=== PATIENT | male | born 1965 | race Caucasian/White ===

== ENCOUNTER 2017-02-17 18:24 | Emergency (ER) | payer MEDICARE, OTHER ==
[~2017-02-17] VITALS: Ht 182.9 cm; Wt 112.3 kg
[2017-02-17] MEDS ORDERED: ZYRT10CA PO (18:40)
[2017-02-17] MEDS ORDERED: ATOR1TAB19 PO (18:40)
[2017-02-17] MEDS ORDERED: TRAM-533 (18:40)
[2017-02-17] MEDS ORDERED: NORCOTAB PO (20:56)
[2017-02-17] MEDS ORDERED: NEUR300C PO (20:56)
[2017-02-17] MEDS ORDERED: GABAPENTIN 300 MG CAP PO ONE (21:00)
[2017-02-17] MEDS ORDERED: NORCO 5/325MG TABLET (BULK FOR ED) PO ONE (21:00)
[2017-02-17 21:04] VITALS: BP 132/68
== END 2017-02-17 21:05 | disposition home or self-care (01) ==
LOC: M ED 18:24
DX: G57.91 Unspecified mononeuropathy of right lower limb (principal); M54.5 Low back pain; Z87.442 Personal history of urinary calculi; Z79.899 Other long term (current) drug therapy; L23.1 Allergic contact dermatitis due to adhesives

== ENCOUNTER 2017-04-25 18:57 | Emergency (ER) | payer MEDICARE, OTHER ==
[~2017-04-25] VITALS: Ht 182.9 cm; Wt 116.8 kg
[~2017-04-25 18:57] MED LIST: ATOR1TAB19 PO; NEUR300C PO; NORCOTAB PO; TRAM-533; ZYRT10CA PO
[2017-04-25] MEDS ORDERED: amoxicillin PO (19:05)
[2017-04-25] MEDS ORDERED: NS 1,000 ML IV ONE (19:30)
[2017-04-25 19:49] LABS: BASO % 0.6 % (0.0-1.0); EOS # 0.1 10^3/uL (0.0-0.50); EOS % 1.5 % (0.0-3.0); IMMATURE GRANULOCYTE % 0.4 % (0-0); LYMPH # 1.4 10^3/uL (1.5-4.5); LYMPH % 19.1 % (24.0-44.0); MEAN CORPUSCULAR HEMOGLOBIN 30.5 pg (27.0-33.0); MEAN CORPUSCULAR HGB CONC 34.5 g/dl (32.0-36.5); MEAN CORPUSCULAR VOLUME 88.5 fl (80.0-96.0); MONO # 0.8 10^3/uL (0.0-0.8); MONO % 10.9 % (0.0-5.0); NEUTROPHILS # 4.8 10^3/uL (1.8-7.7); NEUTROPHILS % 67.5 % (36.0-66.0); PLATELET COUNT, AUTOMATED 228 10^3/uL (150-450); RED CELL DISTRIBUTION WIDTH 12.1 % (11.5-14.5); WHITE BLOOD COUNT 7.2 10^3/uL (4.0-10.0)
--- NOTE | 2017-04-25 19:50 | REPUSA ---
CT of the abdomen and pelvis without contrast Clinical statement: Pain. Technique: Multiple axial CT images were obtained from the base of the lungs to the floor of the pelv is utilizing 5 mm axial slices without administration of contrast. Coronal and sagittal reconstructio ns were also obtained. No comparison is available. Findings: Chest: The visualized lung bases are clear. Abdomen: The kidneys are normal in size bilaterally. There is no evidence of hydronephrosis or nephro lithiasis. The liver, spleen, pancreas, gallbladder and adrenal glands are unremarkable. The aorta de monstrates normal caliber and contour. There is no abdominal lymphadenopathy or ascites. Pelvis: The bowel is unremarkable, with no obstructive or inflammatory changes. The urinary bladder i s within normal limits. There is no pelvic lymphadenopathy or ascites. The other pelvic structures ap pear unremarkable. Bones: There are no suspicious osseous abnormalities seen. Surgical fusion at L4 through S1 is intact . Impression: 1. No evidence of hydronephrosis or nephrolithiasis. 2. No obstructive or inflammatory bowel changes. 3. Lumbar fusion changes are intact.
[2017-04-25 20:12] LABS: ALBUMIN 4.1 GM/DL (3.2-5.2); ALBUMIN/GLOBULIN RATIO 1.17 (1.00-1.93); ALKALINE PHOSPHATASE 71 U/L (45-117); ALT/SGPT 30 U/L (12-78); ANION GAP 8 MEQ/L (8-16); AST/SGOT 23 U/L (7-37); BILIRUBIN,TOTAL 0.5 MG/DL (0.2-1.0); BLOOD UREA NITROGEN 22 MG/DL (7-18); CALCIUM LEVEL 8.7 MG/DL (8.5-10.1); CARBON DIOXIDE LEVEL 27 MEQ/L (21-32); CHLORIDE LEVEL 107 MEQ/L (98-107); CREATININE FOR GFR 1.03 MG/DL (0.70-1.30); GLOMERULAR FILTRATION RATE > 60.0 (>56); GLUCOSE, FASTING 82 MG/DL (70-105); POTASSIUM SERUM 4.2 MEQ/L (3.5-5.1); SODIUM LEVEL 142 MEQ/L (136-145); TOTAL PROTEIN 7.6 GM/DL (6.4-8.2)
[2017-04-25] MEDS ORDERED: KETOROLAC 30 MG/ML VIAL (J1885) IV ONE (20:30)
[2017-04-25] MEDS ORDERED: CYCL10TA PO (20:49)
[2017-04-25] MEDS ORDERED: CYCLOBENZAPRINE 10 MG TAB PO ONE (21:00)
[2017-04-25] MEDS ORDERED: PERCOCET 5MG/325MG TAB PO ONE (21:00)
[2017-04-25] MEDS ORDERED: IBUPROFEN 600 MG TAB PO ONE (21:00)
[2017-04-25 21:21] VITALS: BP 128/84
== END 2017-04-25 21:30 | disposition home or self-care (01) ==
LOC: M ED 18:57
DX: M54.5 Low back pain (principal)
CPT/HCPCS: 36415; 74176; 80053; 81001; 85025; 96374; 99284; J1885

== ENCOUNTER 2017-05-18 16:26 | Emergency (ER) | payer MEDICARE, OTHER | END 2017-05-18 18:06 | disposition home or self-care (01) | LOC: M ED 16:26 | DX: S60.121A Contusion of right index finger with damage to nail, initial encounter (principal); W23.1XXA Caught, crushed, jammed, or pinched between stationary objects, initial encounter; Y92.89 Other specified places as the place of occurrence of the external cause | CPT/HCPCS: 73130 ==

== ENCOUNTER 2019-09-12 10:16 | Emergency (ER) | payer MEDICARE, OTHER ==
[~2019-09-12] VITALS: Ht 182.9 cm; Wt 123.4 kg
[~2019-09-12 10:16] MED LIST changes: +CYCL-707 PO; +HYDR-3715 PO; -NORCOTAB PO; +amoxicillin PO
[2019-09-12] MEDS ORDERED: b/p med (10:26)
[2019-09-12] MEDS ORDERED: ALEVE (10:26)
[2019-09-12] MEDS ORDERED: NS 1,000 ML IV ONE (11:00)
[2019-09-12 11:18] LABS: BASO % 0.8 % (0.0-1.0); EOS # 0.1 10^3/uL (0.0-0.5); EOS % 2.9 % (0.0-3.0); HEMATOCRIT 43.9 % (42.0-52.0); HEMOGLOBIN 14.8 g/dl (13.5-17.5); LYMPH # 1.3 10^3/uL (1.5-5.0); LYMPH % 26.2 % (24.0-44.0); MEAN CORPUSCULAR HGB CONC 33.7 g/dl (32.0-36.5); MEAN CORPUSCULAR VOLUME 88.9 fl (80.0-96.0); MONO # 0.6 10^3/uL (0.0-0.8); MONO % 13.2 % (0.0-5.0); NEUTROPHILS # 2.7 10^3/uL (1.5-8.5); NEUTROPHILS % 56.5 % (36.0-66.0); PLATELET COUNT, AUTOMATED 205 10^3/uL (150-450); RED BLOOD COUNT 4.94 10^6/uL (4.30-6.10); WHITE BLOOD COUNT 4.8 10^3/uL (4.0-10.0)
[2019-09-12 11:41] LABS: ALBUMIN 3.8 GM/DL (3.2-5.2); ALT/SGPT 46 U/L (12-78); BILIRUBIN,DIRECT 0.1 MG/DL (0.0-0.2); BILIRUBIN,TOTAL 0.6 MG/DL (0.2-1.0); BLOOD UREA NITROGEN 21 MG/DL (7-18); CALCIUM LEVEL 9.1 MG/DL (8.5-10.1); CARBON DIOXIDE LEVEL 27 MEQ/L (21-32); CHLORIDE LEVEL 107 MEQ/L (98-107); CREATININE FOR GFR 0.83 MG/DL (0.70-1.30); GLOMERULAR FILTRATION RATE > 60.0 (>56); GLUCOSE, FASTING 83 MG/DL (70-100); LIPASE 79 U/L (73-393); POTASSIUM SERUM 4.3 MEQ/L (3.5-5.1); SODIUM LEVEL 139 MEQ/L (136-145)
[2019-09-12] MEDS ORDERED: methylPREDNISolone INJ 125 MG/2 ML VIAL (J2930) IV ONE (13:00)
[2019-09-12] MEDS ORDERED: KETOROLAC 30 MG/ML 1ML VIAL IV ONE (13:00)
[2019-09-12] MEDS ORDERED: BACLOFEN 10 MG TAB PO ONE (13:00)
--- NOTE | 2019-09-12 13:45 | REP ---
CT LUMBAR SPINE WITHOUT CONTRAST: HISTORY: Low back pain radiating down left leg. Comparison lumbar spine radiographs are from October 23, 2011. Comparison is made with imaging obtained during CT study of the abdomen and pelvis from April 25, 2017. CT FINDINGS: Digital preliminary vest baster images demonstrate that the patient is status post interbody fusion L4-5 and L5-S1. A dorsal column stimulator lead is noted in place at the thoracolumbar junction. Extensive laminectomies have been performed at L5 and L4 bilaterally with resection of the spinous process sees. Interbody fusion hardware is noted at these two disc spaces in good position. No malalignment. There is postop granulation tissue along the dorsal aspect of the spinal canal at the laminectomy sites unchanged. No bony neural foraminal narrowing is seen on either side at these levels. At L3-4, there is degenerative disc narrowing. There is a diffuse disc bulging at L3-4. Mild central canal stenosis is felt to be present and L3-4 due to disc bulging and developmentally short pedicles. There is mild ligamentum flavum hypertrophy contributing as well. There is left-sided neural foraminal narrowing due to facet hypertrophy and discogenic spurring. At L2-3, there is mild diffuse disc bulging as well with some calcification of the posterior disc margin and discogenic spurring. Canal size is borderline at L2-3. There is some ligamentum flavum and facet hypertrophy contributing to this. No foraminal narrowing is appreciated. At L1-2, no disc protrusion is appreciated. No foraminal narrowing or central canal stenosis is seen. There is right-sided L1-2 facet hypertrophy. There is old bony deformity of the right transverse process at L2 consistent with an old healed fracture. No acute fracture is seen. The dorsal column stimulator leads enter the dorsal epidural space at the T11-12 level and ascend into the lower thoracic spine terminating at what appears to be T10. Coronal multiplanar re-formation images demonstrate levoconvex curvature. Sacrum SI joints are intact. IMPRESSION: 1. Status post bilateral laminectomy L4 and L5 with interbody fusion L4-5 and L5-S1. 2. Central canal stenosis and left-sided foraminal narrowing at L3-4 due to degenerative disc and osteoarthritic facet disease and ligamentum flavum hypertrophy. 3. Diffuse disc bulging at L2-3. 4. Dorsal column stimulator lead in the lower thoracic spine canal. Electronically Signed by Zeus Martino MD 09/12/2019 05:08 P
[2019-09-12] MEDS ORDERED: LIDO5DIS41 TOP (14:09)
[2019-09-12] MEDS ORDERED: BACL10TA2 PO (14:09)
[2019-09-12] MEDS ORDERED: PRED20TA PO (14:12)
[2019-09-12 14:16] VITALS: BP 121/84
== END 2019-09-12 14:36 | disposition home or self-care (01) ==
LOC: M ED 10:16
DX: M54.42 Lumbago with sciatica, left side (principal); M54.17 Radiculopathy, lumbosacral region; M48.07 Spinal stenosis, lumbosacral region; M51.26 Other intervertebral disc displacement, lumbar region; Z96.82 Presence of neurostimulator; Z98.1 Arthrodesis status; Z87.442 Personal history of urinary calculi; I10 Essential (primary) hypertension; E78.5 Hyperlipidemia, unspecified; Z91.048 Other nonmedicinal substance allergy status; Z79.899 Other long term (current) drug therapy; Z79.891 Long term (current) use of opiate analgesic
CPT/HCPCS: 72131; 80047; 80048; 80076; 81001; 83690; 85025; 96361; 96374; 96375; 99284; J1885; J2930

== ENCOUNTER → 2021-11-25 | Outpatient (CLI) | payer MEDICARE, OTHER ==
[~2021-11-25] MED LIST changes: +ALEVE; +BACL10TA2 PO; +LIDO5DIS41 TOP; +PRED20TA PO; +b/p med
[2021-11-25 11:16] LABS: BASO % 1.1 % (0.0-1.0); EOS # 0.2 10^3/uL (0.0-0.5); EOS % 4.1 % (0.0-3.0); HEMATOCRIT 44.1 % (42.0-52.0); HEMOGLOBIN 14.7 g/dl (13.5-17.5); LYMPH # 0.8 10^3/uL (1.5-5.0); LYMPH % 22.4 % (24.0-44.0); MEAN CORPUSCULAR HGB CONC 33.3 g/dl (32.0-36.5); MONO # 0.6 10^3/uL (0.0-0.8); MONO % 16.8 % (2.0-8.0); NEUTROPHILS % 55.1 % (36.0-66.0); PLATELET COUNT, AUTOMATED 189 10^3/uL (150-450); WHITE BLOOD COUNT 3.7 10^3/uL (4.0-10.0)
[2021-11-25 12:16] LABS: ALBUMIN 3.7 GM/DL (3.2-5.2); ALT/SGPT 38 U/L (12-78); BILIRUBIN,DIRECT 0.1 MG/DL (0.0-0.2); BILIRUBIN,TOTAL 0.6 MG/DL (0.2-1.0); CALCIUM LEVEL 8.9 MG/DL (8.5-10.1); CREATININE FOR GFR 1.18 MG/DL (0.70-1.30); GLOMERULAR FILTRATION RATE > 60.0 (>56); TOTAL PROTEIN 6.9 GM/DL (6.4-8.2)
== END ==
LOC: M LAB 10:51
PROVIDERS: ATTEND Internal Medicine Pulmonary Disease
DX: R91.8 Other nonspecific abnormal finding of lung field (principal)

== ENCOUNTER → 2021-11-25 | Outpatient (CLI) | payer MEDICARE, OTHER | LOC: M CARPUL 09:38 | PROVIDERS: ATTEND Internal Medicine Pulmonary Disease | DX: R91.8 Other nonspecific abnormal finding of lung field (principal) ==

== ENCOUNTER 2021-12-03 09:03 | Day surgery (SDC) | payer MEDICARE, OTHER ==
[~2021-12-03] VITALS: Ht 182.9 cm; Wt 136.4 kg
[~2021-12-03 09:03] MED LIST changes: +CETACAINE SPRAY 5GM As Ordered ONE; +CETI10CH PO; +EPINEPHrine 1MG/10ML SYRINGE 1.5IN As Ordered ONE; -TRAM-533; +TRAM-533 PO
[2021-12-03 09:54] LABS: INR 0.96; PROTHROMBIN TIME 13.2 SECONDS (12.7-14.5)
[2021-12-03 09:55] LABS: PARTIAL THROMBOPLASTIN TIME 25.6 SECONDS (25.9-37.0)
[2021-12-03] MEDS ORDERED: LR 1,000 ML IV SCH ×2 (09:55→13:15)
[2021-12-03] MEDS ORDERED: fentaNYL 100 MCG/2 ML INJECTION As Ordered ONE (10:35)
[2021-12-03] MEDS ORDERED: ROCURONIUM BROMIDE 50 MG/5 ML VIAL As Ordered ONE (10:36)
[2021-12-03] MEDS ORDERED: LIDOCAINE 2% 100MG/5ML SDV (FOR ANES.) As Ordered ONE (10:37)
[2021-12-03] MEDS ORDERED: dexameTHASONE 4 MG/ML 1ML VIAL (J1100 PER 1MG) As Ordered ONE ×2 (10:38→12:37)
[2021-12-03] MEDS ORDERED: MIDAZOLAM INJ 2MG/2ML VIAL (J2250 PER 1MG) As Ordered ONE (10:39)
[2021-12-03] MEDS ORDERED: ALBUTEROL SULFATE 2.5 MG/0.5 ML INH NEB SOLN NEB ONE (10:40)
[2021-12-03] MEDS ORDERED: LIDOCAINE 4% INJ 5ML AMP NEB ONE (11:00)
[2021-12-03] MEDS ORDERED: ONDANSETRON 4MG 2ML VIAL As Ordered ONE ×2 (12:37→12:41)
[2021-12-03] MEDS ORDERED: propofoL 200 MG/20 ML VIAL As Ordered ONE (12:39)
[2021-12-03] MEDS ORDERED: SUGAMMADEX SODIUM 500 MG/5 ML VIAL (BRIDION) As Ordered ONE (12:41)
[2021-12-03] MEDS ORDERED: oxyCODONE 5MG TAB PO PRN (13:15)
[2021-12-03] MEDS ORDERED: fentaNYL 100 MCG/2 ML INJECTION IV PRN (13:15)
[2021-12-03] MEDS ORDERED: ONDANSETRON 4MG 2ML VIAL IV PRN (13:15)
[2021-12-03 14:05] VITALS: BP 139/89
== END 2021-12-03 15:05 | disposition home or self-care (01) ==
LOC: M SDC 09:03
PROVIDERS: ATTEND Internal Medicine Pulmonary Disease
DX: R59.0 Localized enlarged lymph nodes (principal); G47.33 Obstructive sleep apnea (adult) (pediatric); Z91.19 Patient's noncompliance with other medical treatment and regimen; E66.01 Morbid (severe) obesity due to excess calories; Z98.84 Bariatric surgery status; J30.2 Other seasonal allergic rhinitis; M79.606 Pain in leg, unspecified; G89.29 Other chronic pain; R53.83 Other fatigue; R10.9 Unspecified abdominal pain; Z98.1 Arthrodesis status; Z87.442 Personal history of urinary calculi
CPT/HCPCS: 31629; 31652; 36415; 71045; 85610; 85730; 88173; 88305; 88312; J1100; J2250; J2405; J3010

== ENCOUNTER → 2022-02-26 | Outpatient (CLI) | payer MEDICARE, OTHER ==
[~2022-02-26] MED LIST changes: -CETACAINE SPRAY 5GM As Ordered ONE; -EPINEPHrine 1MG/10ML SYRINGE 1.5IN As Ordered ONE
== END ==
LOC: M EKG 11:13
PROVIDERS: ATTEND Internal Medicine Pulmonary Disease
DX: D86.2 Sarcoidosis of lung with sarcoidosis of lymph nodes (principal); I45.10 Unspecified right bundle-branch block

== ENCOUNTER 2022-11-19 08:53 | Day surgery (SDC) | payer OTHER ==
[~2022-11-19] VITALS: Ht 182.9 cm; Wt 136.9 kg
[~2022-11-19 08:53] MED LIST changes: +ADVA115A INH; +ALBU90AE INH; +CELE100C PO; +CELE1CAP9 PO; +FURO20TA2 PO; +LISI5TAB11 PO; +NS 1,000 ML IV ONE; +TRAM50TA2 PO; +VITA-183 PO
[2022-11-19] MEDS ORDERED: propofoL 200 MG/20 ML VIAL As Ordered ONE ×2 (10:07→10:12)
[2022-11-19 10:27] VITALS: TEMP 98.7
[2022-11-19 10:50] VITALS: BP 164/98; O2SAT 97
== END 2022-11-19 11:02 | disposition home or self-care (01) ==
LOC: M OPP 08:53
PROVIDERS: ATTEND Surgery
DX: Z12.11 Encounter for screening for malignant neoplasm of colon (principal); Z86.010 Personal history of colon polyps; K64.2 Third degree hemorrhoids; K64.4 Residual hemorrhoidal skin tags; Z79.51 Long term (current) use of inhaled steroids; Z79.891 Long term (current) use of opiate analgesic; Z79.899 Other long term (current) drug therapy; Z91.048 Other nonmedicinal substance allergy status

== ENCOUNTER → 2022-11-24 | Outpatient (CLI) | payer OTHER ==
[~2022-11-24] MED LIST changes: +GASTROGRAFIN SOLUTION 30ML As Ordered ONE; +ISOVUE-370 76% 100ML VIAL As Ordered ONE; -NS 1,000 ML IV ONE
== END ==
LOC: M RAD 07:32
PROVIDERS: ATTEND Surgery
DX: R10.13 Epigastric pain (principal)
CPT/HCPCS: 74178; Q9963; Q9967

== ENCOUNTER 2022-12-08 20:23 | Emergency (ER) | payer OTHER ==
[~2022-12-08] VITALS: Ht 182.9 cm; Wt 143.6 kg
[~2022-12-08 20:23] MED LIST changes: -GASTROGRAFIN SOLUTION 30ML As Ordered ONE; -ISOVUE-370 76% 100ML VIAL As Ordered ONE
[2022-12-08 20:24] VITALS: BP 133/84; TEMP 97.8; O2SAT 94
== END 2022-12-09 01:09 | disposition left against medical advice (07) ==
LOC: M ED 20:23
DX: Z53.21 Procedure and treatment not carried out due to patient leaving prior to being seen by health care provider (principal)

== ENCOUNTER 2022-12-14 09:41 | Emergency (ER) | payer OTHER ==
[~2022-12-14] VITALS: Ht 182.9 cm; Wt 138.9 kg
[~2022-12-14 09:41] MED LIST changes: -E-Z-GAS II EFFERVESCENT PACKET (SODIUM BICARB./CITRIC ACID/SIMETHICONE) As Ordered ONE; -E-Z-HD 98% w/w 340GM SUSP BTL As Ordered ONE; -E-Z-PAQUE 96% w/w SUSP 176GM BTL As Ordered ONE; -ELIQ5TAB PO
[2022-12-14 11:23] LABS: BASO # 0.1 10^3/uL (0.0-0.2); BASO % 0.6 % (0.0-1.0); EOS # 0.2 10^3/uL (0.0-0.5); EOS % 2.1 % (0.0-3.0); HEMATOCRIT 41.9 % (42.0-52.0); HEMOGLOBIN 14.2 g/dl (13.5-17.5); LYMPH # 0.7 10^3/uL (1.5-5.0); LYMPH % 9.1 % (24.0-44.0); MEAN CORPUSCULAR HEMOGLOBIN 29.7 pg (27.0-33.0); MEAN CORPUSCULAR HGB CONC 33.9 g/dl (32.0-36.5); MEAN CORPUSCULAR VOLUME 87.7 fl (80.0-96.0); MONO # 1.1 10^3/uL (0.0-0.8); MONO % 14.5 % (2.0-8.0); NEUTROPHILS # 5.7 10^3/uL (1.5-8.5); NEUTROPHILS % 73.2 % (36.0-66.0); PLATELET COUNT, AUTOMATED 192 10^3/uL (150-450); RED BLOOD COUNT 4.78 10^6/uL (4.30-6.10); WHITE BLOOD COUNT 7.8 10^3/uL (4.0-10.0)
[2022-12-14 11:32] LABS: ERYTHROCYTE SEDIMENTATION RATE 43 mm/hr (0-20)
[2022-12-14 12:05] LABS: INR 1.05; PROTHROMBIN TIME 13.9 SECONDS (12.5-14.5)
[2022-12-14] MEDS ORDERED: ELIQ5TAB PO (12:40)
[2022-12-14] MEDS ORDERED: APIXABAN 5 MG TAB (ELIQUIS) PO ONE (12:40)
[2022-12-14 12:54] VITALS: BP 139/95; TEMP 99.5; O2SAT 96
== END 2022-12-14 13:00 | disposition home or self-care (01) ==
LOC: M ED 09:41
DX: I82.4Z2 Acute embolism and thrombosis of unspecified deep veins of left distal lower extremity (principal); I10 Essential (primary) hypertension; D86.9 Sarcoidosis, unspecified; Z79.899 Other long term (current) drug therapy; R10.13 Epigastric pain

== ENCOUNTER → 2022-12-14 | Outpatient (CLI) | payer OTHER ==
[~2022-12-14] MED LIST changes: +E-Z-GAS II EFFERVESCENT PACKET (SODIUM BICARB./CITRIC ACID/SIMETHICONE) As Ordered ONE; +E-Z-HD 98% w/w 340GM SUSP BTL As Ordered ONE; +E-Z-PAQUE 96% w/w SUSP 176GM BTL As Ordered ONE; +ELIQ5TAB PO
== END ==
LOC: M RAD 09:10
PROVIDERS: ATTEND Surgery
DX: R10.13 Epigastric pain (principal)

== ENCOUNTER 2022-12-18 16:13 | Emergency (ER) | payer MEDICARE, OTHER ==
[~2022-12-18] VITALS: Ht 195.6 cm; Wt 137.5 kg
[~2022-12-18 16:13] MED LIST changes: +ELIQ5TAB PO
[2022-12-18] MEDS ORDERED: NORCO, ANEXSIA 5/325MG TABLET (HYDROcodone/ACETAMINOPHEN) PO ONE (20:25)
[2022-12-18] MEDS ORDERED: HYDR2.5C TOP (20:30)
[2022-12-18] MEDS ORDERED: T E MIS MC (20:30)
[2022-12-18] MEDS ORDERED: HYDR-3713 PO (20:30)
[2022-12-18 20:44] VITALS: BP 134/86; TEMP 97
[2022-12-18 20:48] VITALS: O2SAT 98
== END 2022-12-18 20:51 | disposition home or self-care (01) ==
LOC: M ED 16:13
DX: I82.402 Acute embolism and thrombosis of unspecified deep veins of left lower extremity (principal); I87.2 Venous insufficiency (chronic) (peripheral); I10 Essential (primary) hypertension; E78.5 Hyperlipidemia, unspecified; D86.9 Sarcoidosis, unspecified; G47.33 Obstructive sleep apnea (adult) (pediatric); Z87.442 Personal history of urinary calculi; M54.9 Dorsalgia, unspecified; Z79.01 Long term (current) use of anticoagulants; Z79.899 Other long term (current) drug therapy; Z79.51 Long term (current) use of inhaled steroids

== ENCOUNTER → 2023-02-23 | Outpatient (CLI) | payer OTHER, MEDICARE ==
[~2023-02-23] MED LIST changes: +CELE0.09 PO; -CELE1CAP9 PO; +HYDR-3713 PO; +HYDR2.5C TOP; +T E MIS MC
== END ==
LOC: M RAD 15:42
PROVIDERS: ATTEND Internal Medicine Pulmonary Disease
DX: R91.8 Other nonspecific abnormal finding of lung field (principal)

== ENCOUNTER → 2023-07-12 | Outpatient (CLI) | payer OTHER | LOC: M RAD 15:16 | PROVIDERS: ATTEND Nurse Practitioner Family | DX: N20.0 Calculus of kidney (principal); I70.1 Atherosclerosis of renal artery ==

== ENCOUNTER → 2023-10-14 | Outpatient (CLI) | payer OTHER ==
[2023-10-14 11:03] LABS: HEMATOCRIT 41.3 % (42.0-52.0); MEAN CORPUSCULAR HGB CONC 33.9 g/dl (32.0-36.5); MEAN CORPUSCULAR VOLUME 88.4 fl (80.0-96.0); PLATELET COUNT, AUTOMATED 206 10^3/uL (150-450); RED BLOOD COUNT 4.67 10^6/uL (4.30-6.10); WHITE BLOOD COUNT 4.9 10^3/uL (4.0-10.0)
[2023-10-14 11:28] LABS: ALBUMIN 3.7 G/DL (3.2-5.2); ALKALINE PHOSPHATASE 84 U/L (46-116); ALT/SGPT 25 U/L (7.0-40); AST/SGOT 16 U/L (<34); BILIRUBIN,TOTAL 0.5 MG/DL (0.3-1.2); BLOOD UREA NITROGEN 18 MG/DL (9-23); CARBON DIOXIDE LEVEL 27 MMOL/L (20-31); CHLORIDE LEVEL 105 MMOL/L (98-107); CHOLESTEROL LEVEL 149 MG/DL (<200); CHOLESTEROL RISK RATIO 3.92 (<5); GLOMERULAR FILTRATION RATE > 60.0 (>56); GLUCOSE, FASTING 110 MG/DL (60-100); POTASSIUM SERUM 4.2 MMOL/L (3.5-5.1); SODIUM LEVEL 137 MMOL/L (136-145); TOTAL IRON BINDING CAPACITY 276 UG/DL (250-425); TRIGLYCERIDES LEVEL 90 MG/DL (<150)
[2023-10-14 11:29] LABS: IRON (FE) 57 UG/DL (65-175); PERCENT SATURATION 20.7 % (19.7-50.0)
[2023-10-14 11:30] LABS: TOTAL 25(OH) VITAMIN D 27.1 NG/ML (20.0-100.0)
[2023-10-14 11:31] LABS: VITAMIN B12 LEVEL 675 PG/ML (211-911)
== END ==
LOC: M LAB 10:33
PROVIDERS: ATTEND Physician Assistant
DX: Z98.84 Bariatric surgery status (principal); Z79.899 Other long term (current) drug therapy; Z86.39 Personal history of other endocrine, nutritional and metabolic disease

== ENCOUNTER → 2024-01-14 | Outpatient (CLI) | payer MEDICARE, OTHER ==
[~2024-01-14] MED LIST changes: -ALBU90AE INH; +ALBU90AE2 INH
[2024-01-14 11:04] LABS: HEMOGLOBIN 14.3 g/dl (13.5-17.5); MEAN CORPUSCULAR HEMOGLOBIN 29.7 pg (27.0-33.0); MEAN CORPUSCULAR HGB CONC 33.3 g/dl (32.0-36.5); MEAN CORPUSCULAR VOLUME 89.4 fl (80.0-96.0); PLATELET COUNT, AUTOMATED 206 10^3/uL (150-450); RED BLOOD COUNT 4.81 10^6/uL (4.30-6.10); WHITE BLOOD COUNT 4.8 10^3/uL (4.0-10.0)
[2024-01-14 11:33] LABS: IRON (FE) 75 UG/DL (65-175); PERCENT SATURATION 26.4 % (19.7-50.0); TOTAL IRON BINDING CAPACITY 284 UG/DL (250-425)
[2024-01-14 11:34] LABS: ALBUMIN 3.7 G/DL (3.2-5.2); ALKALINE PHOSPHATASE 90 U/L (46-116); ALT/SGPT 24 U/L (7.0-40); AST/SGOT 18 U/L (<34); BILIRUBIN,TOTAL 0.7 MG/DL (0.3-1.2); BLOOD UREA NITROGEN 18 MG/DL (9-23); CALCIUM LEVEL 9.5 MG/DL (8.5-10.1); CARBON DIOXIDE LEVEL 30 MMOL/L (20-31); CHLORIDE LEVEL 104 MMOL/L (98-107); CHOLESTEROL LEVEL 155 MG/DL (<200); CHOLESTEROL RISK RATIO 4.22 (<5); CREATININE FOR GFR 0.95 MG/DL (0.70-1.30); GLOMERULAR FILTRATION RATE > 60.0 (>56); GLUCOSE, FASTING 91 MG/DL (60-100); HDL CHOLESTEROL 36.7 MG/DL (>40); LDL CHOLESTEROL 100.1 MG/DL (<100); NON-HDL-C 118.3 MG/DL; POTASSIUM SERUM 4.6 MMOL/L (3.5-5.1); SODIUM LEVEL 137 MMOL/L (136-145); TOTAL PROTEIN 7.1 G/DL (5.7-8.2); TRIGLYCERIDES LEVEL 91 MG/DL (<150)
[2024-01-14 11:37] LABS: TOTAL 25(OH) VITAMIN D 33.2 NG/ML (20.0-100.0); VITAMIN B12 LEVEL 747 PG/ML (211-911)
== END ==
LOC: M LAB 09:35
PROVIDERS: ATTEND Physician Assistant
DX: K31.6 Fistula of stomach and duodenum (principal); Z98.84 Bariatric surgery status; Z79.899 Other long term (current) drug therapy

== ENCOUNTER → 2024-02-23 | Outpatient (CLI) | payer MEDICARE, OTHER | LOC: M LAB 11:28 | PROVIDERS: ATTEND Internal Medicine Pulmonary Disease | DX: R91.8 Other nonspecific abnormal finding of lung field (principal) ==

== ENCOUNTER 2024-03-24 15:37 | Inpatient (IN) | payer MEDICARE, OTHER ==
[~2024-03-24] VITALS: Ht 180.3 cm; Wt 130.1 kg
[2024-03-24 17:16] LABS: HEMATOCRIT 43.2 % (42.0-52.0); HEMOGLOBIN 14.6 g/dl (13.5-17.5); MEAN CORPUSCULAR HEMOGLOBIN 30.6 pg (27.0-33.0); MEAN CORPUSCULAR HGB CONC 33.8 g/dl (32.0-36.5); MEAN CORPUSCULAR VOLUME 90.6 fl (80.0-96.0); PLATELET COUNT, AUTOMATED 204 10^3/uL (150-450); RED BLOOD COUNT 4.77 10^6/uL (4.30-6.10); WHITE BLOOD COUNT 4.4 10^3/uL (4.0-10.0)
[2024-03-24 17:30] LABS: INR 1.08; PARTIAL THROMBOPLASTIN TIME 34.2 SECONDS (24.8-34.2); PROTHROMBIN TIME 14.3 SECONDS (12.5-14.5)
[2024-03-24 17:49] LABS: BLOOD UREA NITROGEN 22 MG/DL (9-23); CALCIUM LEVEL 9.4 MG/DL (8.5-10.1); CARBON DIOXIDE LEVEL 29 MMOL/L (20-31); CHLORIDE LEVEL 106 MMOL/L (98-107); CREATININE FOR GFR 1.04 MG/DL (0.70-1.30); GLOMERULAR FILTRATION RATE > 60.0 (>56); GLUCOSE, FASTING 73 MG/DL (60-100); POTASSIUM SERUM 4.3 MMOL/L (3.5-5.1); SODIUM LEVEL 141 MMOL/L (136-145)
[2024-03-24] MEDS ORDERED: ALBUTEROL 90 MCG/ACT 8GM HFA INHALER INH PRN (17:55)
[2024-03-24] MEDS ORDERED: HEPARIN SOD (PORCINE) 5000UNITS/ML 1ML VIAL/SYRINGE IV PRN ×2 (17:55→19:00)
[2024-03-24] MEDS ORDERED: HEPARIN DRIP 25,000 UNITS in IV 1 EA IV SCH (17:55)
[2024-03-24] MEDS ORDERED: FURO20TA2 PO (18:25)
[2024-03-24] MEDS ORDERED: FUSICAP PO (18:25)
[2024-03-24] MEDS ORDERED: FLUT1BLS2 IH (18:25)
[2024-03-24] MEDS ORDERED: LOVE1INJ2 INJ (18:25)
[2024-03-24] MEDS ORDERED: METO1TAB32 PO (18:25)
[2024-03-24] MEDS ORDERED: PRAV80TA2 PO (18:25)
[2024-03-24] MEDS ORDERED: FLOM0.4C39 PO (18:25)
[2024-03-24] MEDS ORDERED: ENOX100I3 INJ (18:25)
[2024-03-24] MEDS ORDERED: HOME MED LIST COMPLETE! XX SCH (18:25)
[2024-03-24] MEDS: HEPARIN DRIP 25,000 UNITS in IV 1 EA IV SCH (19:19)
[2024-03-24] MEDS: ADVAIR HFA 115/21MCG INHALER INH SCH (20:00)
[2024-03-24] MEDS: PRAVASTATIN 20 MG TAB PO SCH (20:44)
[2024-03-24] MEDS: CETIRIZINE (ZyrTEC) 5 MG/5 ML UDC DYE FREE PO SCH (20:45)
[2024-03-24] MEDS: METOPROLOL SUCC *XL* 12.5MG PER 1/2 TAB (TopROL *XL*) PO SCH (20:45)
[2024-03-24] MEDS ORDERED: ISOVUE-370 76% 100ML VIAL As Ordered ONE (22:50)
[2024-03-24 23:38] VITALS: BP 132/78; TEMP 97.9; O2SAT 98
[2024-03-25] VITALS (18 sets, daily range): BP systolic 105–126; BP diastolic 68–83; TEMP 97–98.4; O2SAT 92–98
[2024-03-25 07:07] LABS: BASO % 0.9 % (0.0-1.0); EOS # 0.2 10^3/uL (0.0-0.5); EOS % 4.1 % (0.0-3.0); HEMATOCRIT 38.9 % (42.0-52.0); HEMOGLOBIN 13.1 g/dl (13.5-17.5); LYMPH # 0.9 10^3/uL (1.5-5.0); LYMPH % 21.6 % (24.0-44.0); MEAN CORPUSCULAR HEMOGLOBIN 30.6 pg (27.0-33.0); MEAN CORPUSCULAR HGB CONC 33.7 g/dl (32.0-36.5); MEAN CORPUSCULAR VOLUME 90.9 fl (80.0-96.0); MONO # 0.6 10^3/uL (0.0-0.8); MONO % 14.5 % (2.0-8.0); NEUTROPHILS # 2.5 10^3/uL (1.5-8.5); NEUTROPHILS % 58.4 % (36.0-66.0); PLATELET COUNT, AUTOMATED 188 10^3/uL (150-450); RED BLOOD COUNT 4.28 10^6/uL (4.30-6.10); WHITE BLOOD COUNT 4.4 10^3/uL (4.0-10.0)
[2024-03-25 08:54] LABS: BLOOD UREA NITROGEN 20 MG/DL (9-23); CALCIUM LEVEL 9.1 MG/DL (8.5-10.1); CARBON DIOXIDE LEVEL 28 MMOL/L (20-31); CHLORIDE LEVEL 108 MMOL/L (98-107); CREATININE FOR GFR 0.98 MG/DL (0.70-1.30); GLOMERULAR FILTRATION RATE > 60.0 (>56); GLUCOSE, FASTING 100 MG/DL (60-100); POTASSIUM SERUM 4.4 MMOL/L (3.5-5.1); SODIUM LEVEL 141 MMOL/L (136-145)
[2024-03-25] MEDS: TAMSULOSIN 0.4 MG CAP PO SCH (08:56)
[2024-03-25] MEDS: NORCO, ANEXSIA 5/325MG TABLET (HYDROcodone/ACETAMINOPHEN) PO PRN (18:44)
[2024-03-25] MEDS: CETIRIZINE (ZyrTEC) 10 MG TAB PO SCH (20:13)
[2024-03-26] VITALS (12 sets, daily range): BP systolic 109–138; BP diastolic 58–78; TEMP 97.1–98.1; O2SAT 93–96
[2024-03-26 06:25] LABS: BASO % 1.1 % (0.0-1.0); EOS # 0.2 10^3/uL (0.0-0.5); EOS % 5.8 % (0.0-3.0); HEMATOCRIT 38.8 % (42.0-52.0); HEMOGLOBIN 12.8 g/dl (13.5-17.5); LYMPH # 0.9 10^3/uL (1.5-5.0); LYMPH % 22.4 % (24.0-44.0); MEAN CORPUSCULAR HEMOGLOBIN 30.2 pg (27.0-33.0); MEAN CORPUSCULAR VOLUME 91.5 fl (80.0-96.0); MONO # 0.6 10^3/uL (0.0-0.8); MONO % 16.6 % (2.0-8.0); NEUTROPHILS % 53.6 % (36.0-66.0); PLATELET COUNT, AUTOMATED 176 10^3/uL (150-450); RED BLOOD COUNT 4.24 10^6/uL (4.30-6.10); WHITE BLOOD COUNT 3.8 10^3/uL (4.0-10.0)
[2024-03-26 06:48] LABS: BLOOD UREA NITROGEN 19 MG/DL (9-23); CALCIUM LEVEL 8.7 MG/DL (8.5-10.1); CARBON DIOXIDE LEVEL 28 MMOL/L (20-31); CHLORIDE LEVEL 108 MMOL/L (98-107); CREATININE FOR GFR 0.92 MG/DL (0.70-1.30); GLOMERULAR FILTRATION RATE > 60.0 (>56); GLUCOSE, FASTING 88 MG/DL (60-100); POTASSIUM SERUM 4.1 MMOL/L (3.5-5.1); SODIUM LEVEL 141 MMOL/L (136-145)
[2024-03-27] VITALS (8 sets, daily range): BP systolic 107–133; BP diastolic 68–87; TEMP 97.4–98.4; O2SAT 94–97
[2024-03-27 05:46] LABS: BASO # 0.1 10^3/uL (0.0-0.2); EOS # 0.2 10^3/uL (0.0-0.5); EOS % 4.9 % (0.0-3.0); HEMATOCRIT 39.4 % (42.0-52.0); HEMOGLOBIN 13.3 g/dl (13.5-17.5); LYMPH # 0.8 10^3/uL (1.5-5.0); LYMPH % 16.9 % (24.0-44.0); MEAN CORPUSCULAR HEMOGLOBIN 30.3 pg (27.0-33.0); MEAN CORPUSCULAR HGB CONC 33.8 g/dl (32.0-36.5); MEAN CORPUSCULAR VOLUME 89.7 fl (80.0-96.0); MONO # 0.7 10^3/uL (0.0-0.8); MONO % 15.1 % (2.0-8.0); NEUTROPHILS % 61.9 % (36.0-66.0); PLATELET COUNT, AUTOMATED 183 10^3/uL (150-450); RED BLOOD COUNT 4.39 10^6/uL (4.30-6.10); WHITE BLOOD COUNT 4.9 10^3/uL (4.0-10.0)
[2024-03-27 06:21] LABS: BLOOD UREA NITROGEN 15 MG/DL (9-23); CALCIUM LEVEL 9.1 MG/DL (8.5-10.1); CARBON DIOXIDE LEVEL 27 MMOL/L (20-31); CHLORIDE LEVEL 109 MMOL/L (98-107); CREATININE FOR GFR 0.94 MG/DL (0.70-1.30); GLOMERULAR FILTRATION RATE > 60.0 (>56); GLUCOSE, FASTING 91 MG/DL (60-100); POTASSIUM SERUM 4.3 MMOL/L (3.5-5.1); SODIUM LEVEL 141 MMOL/L (136-145)
[2024-03-27] MEDS: PANTOPRAZOLE 40MG TAB (PROTONIX) PO SCH (12:43)
[2024-03-27] MEDS ORDERED: ISOVUE-300 61% 100ML VIAL As Ordered ONE (14:13)
[2024-03-27] MEDS ORDERED: HEPARIN 1,000UNITS/ML 10ML VIAL (FOR RADIOLOGY & DIALYSIS ONLY) As Ordered ONE (14:13)
[2024-03-27] MEDS ORDERED: LIDOCAINE 1% MDV 20ML VIAL As Ordered ONE (14:13)
[2024-03-27] MEDS ORDERED: fentaNYL 100 MCG/2 ML INJECTION As Ordered ONE (14:14)
[2024-03-27] MEDS ORDERED: MIDAZOLAM INJ 2MG/2ML VIAL As Ordered ONE (14:14)
[2024-03-27] MEDS: NS 1,000 ML IV SCH (14:35)
[2024-03-27] MEDS: APIXABAN 5 MG TAB (ELIQUIS) PO SCH (22:00)
[2024-03-28 01:22] LABS: CARDIOLIPIN IGA ANTIBODY < 2.0 APL-U/mL (<20.0); CARDIOLIPIN IGG ANTIBODY < 2.0 GPL-U/mL (<20.0); CARDIOLIPIN IGM ANTIBODY < 2.0 MPL-U/mL (<20.0)
[2024-03-28 04:15] VITALS: BP 118/74; TEMP 98.3; O2SAT 97
[2024-03-28 06:05] LABS: BASO # 0.1 10^3/uL (0.0-0.2); EOS # 0.2 10^3/uL (0.0-0.5); EOS % 3.5 % (0.0-3.0); HEMATOCRIT 39.3 % (42.0-52.0); HEMOGLOBIN 13.1 g/dl (13.5-17.5); LYMPH # 0.7 10^3/uL (1.5-5.0); LYMPH % 14.9 % (24.0-44.0); MEAN CORPUSCULAR HEMOGLOBIN 30.5 pg (27.0-33.0); MEAN CORPUSCULAR HGB CONC 33.3 g/dl (32.0-36.5); MEAN CORPUSCULAR VOLUME 91.6 fl (80.0-96.0); MONO # 0.8 10^3/uL (0.0-0.8); MONO % 15.9 % (2.0-8.0); NEUTROPHILS # 3.1 10^3/uL (1.5-8.5); NEUTROPHILS % 64.1 % (36.0-66.0); PLATELET COUNT, AUTOMATED 171 10^3/uL (150-450); RED BLOOD COUNT 4.29 10^6/uL (4.30-6.10); WHITE BLOOD COUNT 4.8 10^3/uL (4.0-10.0)
[2024-03-28 06:27] LABS: BLOOD UREA NITROGEN 20 MG/DL (9-23); CALCIUM LEVEL 9.3 MG/DL (8.5-10.1); CARBON DIOXIDE LEVEL 27 MMOL/L (20-31); CHLORIDE LEVEL 106 MMOL/L (98-107); CREATININE FOR GFR 0.94 MG/DL (0.70-1.30); GLOMERULAR FILTRATION RATE > 60.0 (>56); GLUCOSE, FASTING 88 MG/DL (60-100); POTASSIUM SERUM 4.4 MMOL/L (3.5-5.1); SODIUM LEVEL 138 MMOL/L (136-145)
[2024-03-28] MEDS ORDERED: ELIQ5TAB PO (07:13)
[2024-03-28 07:45] VITALS: BP 126/87; TEMP 98; O2SAT 95
[2024-03-28] MEDS: FLUBLOK(EGGFREE) TRIVAL(24-25) VACCINE PF 0.5ML SYRINGE 18YRS & OLDER IM.IMMUN ONE (10:35)
[2024-03-29 00:08] LABS: PROTEIN C FUNCTIONAL ACTIVITY 92 % normal (70-180); PROTEIN S FUNCTIONAL ACTIVITY 84 % normal (70-150)
[2024-03-29 23:07] LABS: PHOSPHOLIPIDS LEVEL 195 mg/dL (151-264)
[2024-03-31 02:37] LABS: ANTI THROMBIN 3 ANTIGEN IMMUNO 88 % normal (80-120); ANTI THROMBIN 3 FUNCT ACTIVITY 93 % normal (80-135)
== END 2024-03-28 10:53 | disposition home or self-care (01) | DRG 253 ==
LOC: M ED 15:37 → M ED INP 17:55 → M PCU 23:33
PROVIDERS: ADMIT Internal Medicine Nephrology; ATTEND Internal Medicine Nephrology
PROC: 067N3ZZ Dilation of Left Femoral Vein, Percutaneous Approach (ICD-10-PCS; principal; 2024-03-27 15:00)
DX: I87.002 Postthrombotic syndrome without complications of left lower extremity (principal); Z68.41 Body mass index [BMI] 40.0-44.9, adult; E66.01 Morbid (severe) obesity due to excess calories; J45.909 Unspecified asthma, uncomplicated; I10 Essential (primary) hypertension; E78.5 Hyperlipidemia, unspecified; M96.1 Postlaminectomy syndrome, not elsewhere classified; D86.9 Sarcoidosis, unspecified; G47.33 Obstructive sleep apnea (adult) (pediatric); M48.061 Spinal stenosis, lumbar region without neurogenic claudication; N40.0 Benign prostatic hyperplasia without lower urinary tract symptoms; Z98.84 Bariatric surgery status; Z79.01 Long term (current) use of anticoagulants; Z79.899 Other long term (current) drug therapy; Z91.048 Other nonmedicinal substance allergy status

== ENCOUNTER → 2024-05-29 | Outpatient (CLI) | payer OTHER, MEDICARE ==
[~2024-05-29] MED LIST changes: +ENOX100I3 INJ; +FLOM0.4C39 PO; +FLUT1BLS2 IH; +FUSICAP PO; +LOVE1INJ2 INJ; +METO1TAB32 PO; +PRAV80TA2 PO
== END ==
LOC: M RAD 11:08
PROVIDERS: ATTEND Radiology Diagnostic Radiology
DX: I87.002 Postthrombotic syndrome without complications of left lower extremity (principal)

== ENCOUNTER → 2024-06-14 | Outpatient (POV) | payer MEDICARE, OTHER ==
[~2024-06-14] VITALS: Ht 182.9 cm; Wt 124.5 kg
[2024-06-14 13:22] VITALS: BP 142/89; O2SAT 97
== END ==
LOC: M IRPOV 12:44
PROVIDERS: ATTEND Radiology Diagnostic Radiology
DX: I87.2 Venous insufficiency (chronic) (peripheral) (principal); L29.9 Pruritus, unspecified; Z86.718 Personal history of other venous thrombosis and embolism; Z91.048 Other nonmedicinal substance allergy status; Z91.09 Other allergy status, other than to drugs and biological substances

== ENCOUNTER → 2024-07-14 | Outpatient (CLI) | payer MEDICARE, OTHER ==
[2024-07-14 12:29] LABS: IONIZED CALCIUM 4.6 MG/DL (4.5-5.3)
[2024-07-14 12:41] LABS: EOS # 0.2 10^3/uL (0.0-0.5); HEMATOCRIT 43.5 % (42.0-52.0); HEMOGLOBIN 14.4 g/dl (13.5-17.5); LYMPH # 0.7 10^3/uL (1.5-5.0); LYMPH % 18.6 % (24.0-44.0); MEAN CORPUSCULAR HGB CONC 33.1 g/dl (32.0-36.5); MEAN CORPUSCULAR VOLUME 90.6 fl (80.0-96.0); MONO # 0.6 10^3/uL (0.0-0.8); MONO % 14.1 % (2.0-8.0); NEUTROPHILS # 2.5 10^3/uL (1.5-8.5); NEUTROPHILS % 61.8 % (36.0-66.0); PLATELET COUNT, AUTOMATED 196 10^3/uL (150-450)
[2024-07-14 12:54] LABS: HEMOGLOBIN A1c 5.4 % (4.0-6.0)
[2024-07-14 12:58] LABS: ALBUMIN 3.7 G/DL (3.2-5.2); ALKALINE PHOSPHATASE 73 U/L (40-129); ALT/SGPT 36 U/L (7.0-40); AST/SGOT 26 U/L (<34); BILIRUBIN,TOTAL 0.5 MG/DL (0.3-1.2); BLOOD UREA NITROGEN 21 MG/DL (9-23); CALCIUM LEVEL 8.7 MG/DL (8.5-10.1); CARBON DIOXIDE LEVEL 28 MMOL/L (20-31); CHLORIDE LEVEL 109 MMOL/L (98-107); CHOLESTEROL LEVEL 129 MG/DL (<200); CHOLESTEROL RISK RATIO 2.87 (<5); CREATININE FOR GFR 1.02 MG/DL (0.70-1.30); GLOMERULAR FILTRATION RATE > 60.0 (>56); GLUCOSE, FASTING 98 MG/DL (60-100); HDL CHOLESTEROL 44.9 MG/DL (>40); IRON (FE) 55 UG/DL (65-175); LDL CHOLESTEROL 69.7 MG/DL (<100); NON-HDL-C 84.1 MG/DL; PERCENT SATURATION 19.3 % (19.7-50.0); POTASSIUM SERUM 4.8 MMOL/L (3.5-5.1); SODIUM LEVEL 140 MMOL/L (136-145); TOTAL IRON BINDING CAPACITY 285 UG/DL (250-425); TRIGLYCERIDES LEVEL 72 MG/DL (<150)
[2024-07-14 12:59] LABS: FERRITIN 98.2 NG/ML (10.5-307.3)
[2024-07-14 13:00] LABS: FOLATE 15.08 NG/ML (>5.4); TOTAL 25(OH) VITAMIN D 29.2 NG/ML (20.0-100.0)
[2024-07-14 13:01] LABS: VITAMIN B12 LEVEL 550 PG/ML (211-911)
[2024-07-19 01:48] LABS: COPPER PLASMA 112 mcg/dL (70-175); SELENIUM PLASMA LEVEL 145 mcg/L (63-160); ZINC PLASMA 60 mcg/dL (60-130)
[2024-07-19 04:22] LABS: VITAMIN A, RETINOL LEVEL 34 mcg/dL (38-98)
== END ==
LOC: M LAB 11:50
PROVIDERS: ATTEND Physician Assistant
DX: E44.0 Moderate protein-calorie malnutrition (principal); E66.01 Morbid (severe) obesity due to excess calories; Z79.899 Other long term (current) drug therapy

== ENCOUNTER → 2024-08-31 | Outpatient (CLI) | payer OTHER | LOC: M RAD 14:52 | PROVIDERS: ATTEND Nurse Practitioner Family | DX: N20.0 Calculus of kidney (principal); Z87.442 Personal history of urinary calculi ==

== ENCOUNTER → 2024-09-28 | Outpatient (CLI) | payer MEDICARE, OTHER ==
[~2024-09-28] MED LIST changes: +D31000CA6 PO; -FLOM0.4C39 PO; +LIDO1ADH93 TOP; -LIDO5DIS41 TOP; +TAMS-18 PO; -VITA-183 PO
[2024-09-28 07:32] VITALS: BP 134/80; TEMP 98.3; O2SAT 97
== END ==
LOC: M IRPRO 07:25
PROVIDERS: ATTEND Radiology Diagnostic Radiology
DX: I87.2 Venous insufficiency (chronic) (peripheral) (principal); I87.002 Postthrombotic syndrome without complications of left lower extremity

== ENCOUNTER → 2024-10-04 | Outpatient (CLI) | payer MEDICARE, OTHER | LOC: M WHC 13:07 | PROVIDERS: ATTEND Physician Assistant | DX: M85.851 Other specified disorders of bone density and structure, right thigh (principal) ==

== ENCOUNTER → 2025-01-02 | Outpatient (CLI) | payer MEDICARE, OTHER ==
[~2025-01-02] MED LIST changes: -PRAV80TA2 PO; +PRAV80TA75 PO
[2025-01-05 18:42] LABS: VITAMIN A, RETINOL LEVEL 41 mcg/dL (38-98)
[2025-01-06 01:02] LABS: COPPER PLASMA 96 mcg/dL (70-175); SELENIUM PLASMA LEVEL 160 mcg/L (63-160); ZINC PLASMA 70 mcg/dL (60-130)
[2025-01-08 18:13] LABS: VITAMIN B1 LEVEL WHOLE BLOOD 115 nmol/L (78-185)
== END ==
LOC: M LAB 12:52
PROVIDERS: ATTEND Physician Assistant
DX: E44.0 Moderate protein-calorie malnutrition (principal); K91.2 Postsurgical malabsorption, not elsewhere classified

== ENCOUNTER → 2025-03-22 | Outpatient (CLI) | payer MEDICARE, OTHER | LOC: M RAD 12:31 | PROVIDERS: ATTEND Internal Medicine Pulmonary Disease | DX: R91.8 Other nonspecific abnormal finding of lung field (principal) ==